=== PATIENT | female | born 1980 ===

== ENCOUNTER 2025-06-13 08:09 | Outpatient (AMB) | payer OTHER, SELFPAY ==
--- NOTE | 2025-06-13 08:11 | MHC.PC.OV ---
Vital Signs 06/13/25 08:21 Height 5 ft 6.3 in Weight 298 lb BMI 47.7 BP 130/72 Blood Pressure Location Lt brachial Position Sitting Respiration 18 Pulse 81 Pulse Source Pulse Oximeter Temp 98.6 F Temp Source Temporal Artery Scan Pulse Oximetry (%) 97 Oxygen Delivery Method Room Air Intake Visit Reasons: ANAYELI, reestablish care Cable Tv Installer Required: No Accompanied by: Self / Same As Patient Allergies azithromycin (From ZITHROMAX) Allergy (Intermediate, Verified 06/13/25 08:11) HIVES, THROAT SWELLING Penicillins (PENICILLINS) Allergy (Intermediate, Verified 06/13/25 08:11) HIVES, THROAT SWELLING Sulfa (Sulfonamide Antibiotics) (SULFA (SULFONAMIDE ANTIBIOTICS)) Allergy (Intermediate, Verified 06/13/25 08:11) HIVES, THROAT SWELLING Medication List - Last Reconciled 06/13/25 by Cheli Ho MD cyanocobalamin (vitamin B-12) 1,000 mcg subcut Q4W lisinopril 20 mg PO DAILY lorazepam 1 mg PO DAILY PRN omeprazole 20 mg PO DAILY Tobacco use date assessed: 06/13/25 Dental Screening Dental Screen Date: 06/13/25 Did you have a dental visit in the last 12 months?: Yes Did you have a dental problem in the last 6 months where you did not have access to dental care?: No Was dental information given to patient?: Patient has dentist HPI HPI Comments History of Present Illness Details The patient is a 45 year old female presenting to re-establish care and address multiple ongoing health issues, including fatigue, gastrointestinal problems, and medication management. Fatigue: The patient reports ongoing and worsening fatigue and exhaustion, to the point of falling asleep during short car rides and in the evening around 7:00 or 8:00 PM. This has been a persistent pattern, causing her distress. She underwent a repeat sleep study in April 2025 at [facility] but has not yet received the results; she has a follow-up appointment with a nurse practitioner scheduled for tomorrow. She has a diagnosis of sleep apnea. ADHD: The patient has a history of ADHD but has stopped all related medications, including Concerta. Had severe withdrawal symptoms once when she stopped medication. She reports that her performance at work has improved despite being off the medication. Gastrointestinal Issues and Gallbladder Disease: The patient continues to experience gastrointestinal issues, including burning sensations, which are managed with daily omeprazole. She was referred to Dr. Vanegas for a second opinion and has already had a consultation. A HIDA scan is scheduled for Tuesday to investigate a possible gallbladder issue. She also struggles with constipation and straining, which has led to hemorrhoids. Her water intake is good, and she has started taking a teaspoon of fiber as recommended. She reports that she cannot eat much due to these issues. She also experiences nausea regardless of what she eats, which is managed with brendan pills and Tums with brendan. Zofran has been effective for her nausea in the past. Splenic Artery Aneurysm: The patient has a history of a splenic artery aneurysm and reports recent pain in the splenic region. She has informed Dr. Vanegas about this history. She was previously followed by a vascular specialist, Dr. Fletcher, and is due for a follow-up in July. Right Leg Hematoma: The patient sustained a deep hematoma in her right leg after falling through a porch in May of last year. She continues to experience pain, irritation, residual lumps, and swelling in the affected leg. Gynecological Issues: The patient reports ongoing vaginal issues, including pain and spasms after urination. She experiences severe menstrual cramps that affect her ability to focus. Weight Management: The patient is concerned about her weight, which fluctuates between 290 and 297 pounds. She expresses interest in a weight management consultation and inquired about GLP 1s. Discussed that due to her ongoing GI issues would not be ideal. Diabetes mellitus type 2- diet controlled, has been in borderline range for years Hypertension: Her blood pressure is controlled with lisinopril 20 mg daily, typically measuring in the 120s. Vitamin B12 Deficiency: The patient has a history of requiring B12 injections. Her last injection was on March 21, and she has run out of her prescription. Anxiety and Stress: The patient reports significant stress due to a toxic work environment and unresolved family conflicts following her grandfather's . She denies suicidal ideation, citing her love for her family and her mary. She manages her anxiety with lorazepam, breathing exercises, and prayer, and is now able to recognize her triggers Social History: - Spirituality: She is active in her jain and uses prayer to manage stress. [facility] Medical History (Updated 06/14/25 @ 08:40 by Cheli Ho MD) Morbid obesity Vaginal pain Routine gynecological examination Iron deficiency anemia Hiatal hernia SHARDA (obstructive sleep apnea) Primary hypertension Depression with anxiety Diabetes mellitus ADHD Surgical History (Updated 06/13/25 @ 07:56 by Cheli Ho MD) History of tonsillectomy Status post breast reduction Previous section History of sleeve gastrectomy H/O laparoscopic adjustable gastric banding History of colonoscopy Family History (Updated 06/13/25 @ 07:55 by Cheli Ho MD) Other Breast cancer Lupus (systemic lupus erythematosus) Primary hypertension Type 2 diabetes mellitus in patient with obesity Social History Housing: House Patient Tobacco Use Status: Never used Tobacco Tobacco use type: Cigarette e-Cigarette/Vaping Use: Never Used service: No Current occupational status: employed Current occupation: [employer] PHQ-9 Over the last 2 weeks, how often have you been bothered by any of the following problems? 1. Little interest or pleasure in doing things: several days 2. Feeling down, depressed, or hopeless: several days 3. Trouble falling or staying asleep, or sleeping too much: nearly every day 4. Feeling tired or having little energy: nearly every day 5. Poor appetite or overeating: nearly every day 6. Feeling bad about yourself - or that you are a failure or have let yourself or your family down: not at all 7. Trouble concentrating on things, such as reading the newspaper or watching television: not at all 8. Moving or speaking so slowly that other people could have noticed. Or the opposite - being so fidgety or restless that you have been moving around a lot more than usual: not at all 9. Thoughts that you would be better off or of hurting yourself in some way: not at all Total score: 11 Source: Developed by Drs. Taras Mak, Carolyn العراقي, Anthony Farnsworth and colleagues, with an educational griffin from [employer]. Thrive Questionnaire Date Thrive assessed: 06/13/25 AUDIT C Alcohol Use Questionnaire (AUDIT-C) 1. How often do you have a drink containing alcohol?: Never 3. How often do you have six or more drinks on one occasion?: Never Total Score: 0 ROSEANN-7 AMB Questionnaire ROSEANN-7 Date ROSEANN - 7 assessed: 06/13/25 Source: Developed by Drs. Taras Mak, Carolyn العراقي, Anthony Farnsworth and colleagues, with an educational griffin from [employer]. Review of Systems Narrative Review of Systems - Constitutional: Reports significant, worsening fatigue and exhaustion. - Cardiovascular: Denies chest pain or shortness of breath. - Respiratory: Denies wheezing. - Gastrointestinal: Reports ongoing gastrointestinal issues, burning sensation, constipation, straining with bowel movements, nausea, and decreased appetite. Denies bloating with fiber. - Genitourinary: Reports vaginal pain and spasms, particularly after urination. - Musculoskeletal: Reports persistent pain, residual lumps, irritation, and tenderness in the right calf following a fall. - Neurological: Reports falling asleep involuntarily, even during short daytime car rides. Denies dizziness. - Psychiatric: per hpi Physical exam (Primary Care) Vital Signs: Last Vital Signs Temp 98.6 F 06/13/25 08:21 Pulse 81 06/13/25 08:21 Resp 18 06/13/25 08:21 BP 130/72 06/13/25 08:21 Pulse Ox 97 06/13/25 08:21 Oxygen Delivery Method Room Air 06/13/25 08:21 BMI result Body Mass Index 47.7 Tobacco/Smoking Status: Tobacco use Status Tobacco use date assessed 06/13/25 06/13/25 08:13 Patient Tobacco Use Status Never used Tobacco 06/13/25 08:23 Tobacco use type Cigarette 06/13/25 08:23 e-Cigarette/Vaping Use Never Used 06/13/25 08:23 PHQ-9: PHQ-9 Score PHQ-9: Total score 11 06/13/25 09:09 Thrive Assessment: Date of Thrive Assessment Date Thrive assessed 06/13/25 06/13/25 08:13 Narrative Physical Exam - Respiratory: Lungs are clear to auscultation bilaterally. No wheezing noted. - Cardiovascular: Normal rate and rhythm. A soft heart murmur is present. - Abdomen: Normal bowel sounds. Tenderness on palpation of the epigastric area. - Extremities: Tenderness noted on palpation of the right calf at site of hematoma. Coding Level of Care Code Est Pt Level 5 (26325) Add On Problem Visit Only Diagnoses Primary hypertension I10 Type 2 diabetes mellitus with other specified complication, without long-term current use of insulin E11.69 Diabetes mellitus type: type 2 Diabetes mellitus emt intermediate insulin use: without prison use Diabetes mellitus complication status: with other specified complication SHARDA (obstructive sleep apnea) G47.33 Time Spent (min) 48 Comment review of care plan, documentation, visit, physical exam, ordering tests Assessment & Plan Assessment & Plan (1) Primary hypertension: Code(s): I10 - Essential (primary) hypertension Category: Medical (2) Diabetes mellitus: Code(s): E11.9 - Type 2 diabetes mellitus without complications Category: Medical Qualifiers: Diabetes mellitus type: type 2 Diabetes mellitus emt intermediate insulin use: without emt intermediate use Diabetes mellitus complication status: with other specified complication Qualified Code(s): E11.69 - Type 2 diabetes mellitus with other specified complication (3) SHARDA (obstructive sleep apnea): Code(s): G47.33 - Obstructive sleep apnea (adult) (pediatric) Category: Medical Plan Assessment and Plan 1. Fatigue/Sleepiness - Patient reports worsening fatigue despite a history of sleep apnea. - A sleep study was done in April with results pending. - Patient will follow up with the sleep clinic nurse practitioner tomorrow and provide this office with an update and results. - This will help determine the next steps in management. 2. Gastrointestinal Issues/Nausea - Patient has ongoing GI symptoms and is scheduled for a HIDA scan to evaluate for gallbladder pathology. - She will follow up with Dr. Vanegas post-scan. - Given her history, GLP-1 agonists are contraindicated at this time due to the risk of worsening gastroparesis. - Will refill Omeprazole. - Will prescribe Zofran for nausea as it has been effective in the past. 3. Right Leg Hematoma/Pain - The patient has persistent pain, swelling, and tenderness in the right calf from a fall last year. - Plan is for the patient to use ice packs with an MARK wrap for 20-minute intervals to reduce inflammation. 4. Gynecological Issues & GENERAL ASSIGNMENT REPORTER Care - Patient reports vaginal pain, spasms - She requires ongoing care. - Will provide a referral to a new GENERAL ASSIGNMENT REPORTER - Will refill Diflucan and clotrimazole ointment. 5. Weight Management - Patient is interested in bariatric surgical options, has had previous surgeries - Will provide a referral to the bariatric surgery/weight management clinic for consultation. 6. Hypertension - Blood pressure is well-controlled on lisinopril 20mg daily. - Will continue current regimen. - Avoided diuretics due to prior adverse effects and electrolyte imbalances. - Will refill lisinopril. 7. Anxiety/Stress - Patient is under significant stress from a toxic work environment and family issues. - She is coping with lorazepam PRN, breathing, and prayer. 8. Vitamin B12 Deficiency - Patient is due for her B12 injection, with the last one being in March. - A full set of labs, including B12 and iron panel, will be drawn today 9. Menstrual Cramps/Headaches - Patient reports severe cramps. - Discussed starting magnesium complex, one pill daily, to see if it helps. - Lab work will check baseline magnesium levels. - Will also refill Butalbital for headaches. 10. Heart Murmur - A soft murmur was noted on exam. - The patient was reassured that this is not concerning without symptoms like chest pain or shortness of breath, especially given her history of a normal echocardiogram in the past 11. Diagnostics - Ordered a full set of labs today, including CMP, CBC, iron panel, B12, and magnesium. - Also ordered a urine microalbumin to check for protein. 12. Follow-up - Plan to follow up in three months for a physical. Plan - Patient to proceed with bloodwork and urinalysis today. - Referral placed to GENERAL ASSIGNMENT REPORTER for ongoing gynecological issues. - Referral placed to the bariatric surgery/weight management clinic for consultation. - Patient will see the sleep clinic nurse practitioner tomorrow and will have results sent to this office. - Patient to undergo scheduled HIDA scan and follow up with Dr. Vanegas. - Advised to use ice packs with an MARK wrap on the right calf for 20-minute intervals to manage pain and inflammation. - Advised to start magnesium complex, one pill daily, for cramps, after baseline levels are checked. - Follow up in the office in three months for a physical exam. Patient Instructions - Please go to the lab today to have your blood drawn and to provide a urine sample. - For the pain and swelling in your right leg, apply an ice pack wrapped in an Mark bandage for about 20 minutes at a time, several times a day. - We have sent referrals for you to see a new GENERAL ASSIGNMENT REPORTER and the weight management clinic. - After your appointment with the sleep specialist tomorrow, please have them send a copy of the sleep study results to our office. - Continue taking your Lisinopril for blood pressure and Omeprazole for stomach issues as prescribed. Orders: Orders Ferritin 06/13/25 D50.9 - Iron deficiency anemia, unspecified, E11.9 - Type 2 diabetes mellitus without complications, G47.33 - Obstructive sleep apnea (adult) (pediatric), I10 - Essential (primary) hypertension IRON PROFILE 06/13/25 D50.9 - Iron deficiency anemia, unspecified, E11.9 - Type 2 diabetes mellitus without complications, G47.33 - Obstructive sleep apnea (adult) (pediatric), I10 - Essential (primary) hypertension Complete Blood Count Auto Diff 06/13/25 D50.9 - Iron deficiency anemia, unspecified, E11.9 - Type 2 diabetes mellitus without complications, G47.33 - Obstructive sleep apnea (adult) (pediatric), I10 - Essential (primary) hypertension Hemoglobin A1c 06/13/25 D50.9 - Iron deficiency anemia, unspecified, E11.9 - Type 2 diabetes mellitus without complications, G47.33 - Obstructive sleep apnea (adult) (pediatric), I10 - Essential (primary) hypertension Vitamin B12 06/13/25 D50.9 - Iron deficiency anemia, unspecified, E11.9 - Type 2 diabetes mellitus without complications, G47.33 - Obstructive sleep apnea (adult) (pediatric), I10 - Essential (primary) hypertension Vitamin D 25-OH Total 06/13/25 D50.9 - Iron deficiency anemia, unspecified, E11.9 - Type 2 diabetes mellitus without complications, G47.33 - Obstructive sleep apnea (adult) (pediatric), I10 - Essential (primary) hypertension Folate 06/13/25 D50.9 - Iron deficiency anemia, unspecified, E11.9 - Type 2 diabetes mellitus without complications, G47.33 - Obstructive sleep apnea (adult) (pediatric), I10 - Essential (primary) hypertension Magnesium 06/13/25 D50.9 - Iron deficiency anemia, unspecified, E11.9 - Type 2 diabetes mellitus without complications, G47.33 - Obstructive sleep apnea (adult) (pediatric), I10 - Essential (primary) hypertension Comprehensive Met. Panel 06/13/25 D50.9 - Iron deficiency anemia, unspecified, E11.9 - Type 2 diabetes mellitus without complications, G47.33 - Obstructive sleep apnea (adult) (pediatric), I10 - Essential (primary) hypertension TSH reflex Free T4 06/13/25 D50.9 - Iron deficiency anemia, unspecified, E11.9 - Type 2 diabetes mellitus without complications, G47.33 - Obstructive sleep apnea (adult) (pediatric), I10 - Essential (primary) hypertension Lipid Panel 06/13/25 D50.9 - Iron deficiency anemia, unspecified, E11.9 - Type 2 diabetes mellitus without complications, G47.33 - Obstructive sleep apnea (adult) (pediatric), I10 - Essential (primary) hypertension Microalbumin, Random (w Creat) 06/13/25 D50.9 - Iron deficiency anemia, unspecified, E11.9 - Type 2 diabetes mellitus without complications, G47.33 - Obstructive sleep apnea (adult) (pediatric), I10 - Essential (primary) hypertension Referrals GENERAL ASSIGNMENT REPORTER Referral R10.20 - Pelvic and perineal pain unspecified side, Z01.419 - Encounter for gynecological examination (general) (routine) without abnormal findings Bariatric Surgery Referral E66.01 - Morbid (severe) obesity due to excess calories Medications: New ondansetron HCl 4 mg PO TID PRN 30 tabs 5RF nausea and vomiting tlpiahjoag-xamrssenmfstm-xrfp 50-325-40 mg 1 cap PO Q6H PRN 20 caps 3RF headache omeprazole 20 mg PO DAILY 90 caps 3RF cyanocobalamin (vitamin B-12) 1,000 mcg subcut Q4W 3 mL 3RF lorazepam 1 mg PO DAILY PRN 30 tabs 5RF anxiety fluconazole 150 mg PO Q3D 2 tabs 3RF 2 doses clotrimazole-betamethasone 1-0.05 % 1 appl topical BID 45 grams 3RF rash 2 weeks
[2025-06-13 08:21] VITALS: BP 130/72; PULSE 81; RESP 18; TEMP 37; O2SAT 97; BMI 47.7
== END 2025-06-13 09:29 | disposition home or self-care (01) ==
LOC: HO.HMCHD 08:09
PROVIDERS: PCP Internal Medicine; Visit Provider Internal Medicine
DX: I10 Essential (primary) hypertension (principal); E11.69 Type 2 diabetes mellitus with other specified complication; G47.33 Obstructive sleep apnea (adult) (pediatric)

== ENCOUNTER 2025-06-21 09:28 | Outpatient (REF) | payer OTHER, SELFPAY ==
--- OUTSIDE RECORDS SUMMARY | 2025-06-21 10:11 | XMS_ITS | Patient Health Record ---
Author Organization [facility] Address [address] [place] [address] Care Team Providers Care Network Cable Installer Name Role Phone Rosendo JIMENEZ, [facility] Primary Care Provider Unavail able Clem Gar Unavailable [phone] Allergies Allergen (clinical drug ingredient) Drug/Non Drug Allergy documented on EMR Reaction Allergy Type Onset Date Status azithromycin Zithromax hives, lip swells Drug Allergy Active sulfa hives, lip swells Drug Allergy Active Penicillin hives, lip swells Drug Allergy Active Reason For Referral No Information Medications Medication SIG (Take, Route, Frequency, Duration) Notes Start Date End Date Status Extra-Depth Diabetic Shoes with 3 Pair Custom heat-molded multi-density innersoles shoes dx:250.00,728.71,701 wear daily; Duration: 1 year 06/09/2011 Active Lisinopril 10 mg Act davy metFORMIN HCl 850 mg Active Problems Problem Type SNOMED Code ICD Code Onset Dates Problem Status W/U Status Risk Notes Problem Type II diabetes mellitus without complication (152927089) Diabetic - NIDDM (250.00) Active confirmed Plan Of Treatment No Information Insurance Providers Payer Name Payer Address Payer Phone Subscriber Number Group Number Insured Name Patient Relationship to Insured Coverage Start Date Coverage End Date [facility] [address] [place] [address] [id number] Cristopher Leal Self - patient is the insured Medical (General) History Medical History History ICD Code back, hip, knee pain type II diabetes hypertension Surgical History Surgery Date(Month/Year) section 01/08, 05/12 breast surgery 2006 tonsillectomy
--- OUTSIDE RECORDS SUMMARY | 2025-06-21 10:11 | XMS_ITS | Clinical Summary ---
Author Organization [facility] Address [address] [place] [address] Care Team Providers Care Fire Investigator Name Role Phone Cheli Ho MD Primary Care Provider [phone] Allergies Active Allergy Reactions Criticality Noted Date Comments Azithromycin Hives 01/21/2022 Tongue swelling Penicillins Hives 01/21/2022 Tongue swelling Prednisone Palpitations 01/21/2022 Sulfa (Sulfonamide Antibiotics) Hives 01/02 Tongue swelling Medications hydroCHLOROthia zide 12.5 mg tablet Take 12.5 mg by mouth daily. Active lisinopriL (PRINIVIL,ZESTR IL) 20 mg tablet Take 20 mg by mouth daily. Active LORazepam (ATIVAN) 1 mg tablet Take 1 mg by mouth every 6 hours as needed. Active omeprazole (PriLOSEC) [address] capsule TAKE 1 CAPSULE BY MOUTH EVERY DAY 06/25/2022 Active ondansetron (ZOFRAN) 4 mg tablet Take 1 Tablet by mouth every 8 hours as needed for Nausea for up to 10 doses. 05/20/2022 Active semaglutide (Ozempic) 0.25 mg or 0.5 mg(2 mg/1.5 mL) injection pen Inject 0.25 mg into the skin once a week. 09/06/2022 Active wheat dextrin (Benefiber Clear SF, dextrin,) 3 gram/3.5 gram powder in packet 06/01/2022 Active atomoxetine (STRATTERA) 40 mg capsule Take 1 capsule (40 mg total) by mouth 2 (two) times a day. Active polyethylene glycol (PEG) 17 gram/dose oral powder Take 17 g by mouth 1 (one) time each day. Active acetaminophen (TYLENOL) 500 mg tablet Take 2 tablets (1,000 mg total) by mouth every 6 (six) hours if needed. 05/17/2022 Active butalbital-aspi rin-caffeine (FIORINAL) 50-325-40 mg per capsule Take 1 capsule by mouth every 8 (eight) hours if needed. Active calcium carbonate (OS-NÉSTOR) 1250 mg (500 mg elemental calcium) chewable tablet Chew 1 tablet (1,250 mg total). Active Encounters Date Type Department Care Team Description 05/02/2025 Telephone Gastroenterology - [address] [facility] [address] [place] [address] Jairo Yuan MD from Last 3 Months Immunizations Immunization Administration Dates Next Due Td Tetanus diptheria (Tdvax) 7yo and older 06/14 Surgical History Surgery Date Site/Laterality Comments OTHER SURGICAL HISTORY PROCEDURE: ---- OTHER ----; COMMENT: gastric sleeve BREAST REDUCTION Bilateral TONSILLECTOMY ADENOIDECTOMY, BILATERAL MYRINGOTOMY AND TUBES SECTION, LOW TRANSVERSE Medical History Medical History Date Comments GERD (gastroesophageal reflux disease) DX:GERD (gastroesophageal reflux disease) Anxiety disorder DX:Anxiety diso rder Hypertension DX:Hypertension Obesity DX:Obesity Family History Medical History Relation Name Comments Diabetes Father Hypertension Mother Obesity Mother Other: Lupus Mother Relation Name Status Comments Father Mother Social History Tobacco Use Types Packs/Day Years Used Date Smoking Tobacco: Never Smokeless Tobacco: Never Alcohol Use Standard Drinks/Week Comments Never 0 (1 standard drink = 0.6 oz pur e alcohol) Interpersonal Safety Answer Date Record ed Physical Abuse Unrecognized value 06/19/2024 Verbal Abuse Unrecognized value 06/19/2024 Comments No Sex and Gender Information Value Date Recorded Sex Assigned at Female 06/18/2024 2:01 PM EST Legal Sex Female 1:59 PM EST Gender Identity Female 06/18/2024 2:01 PM EST Sexual Orientation Straight 06/18/2024 2: 01 PM EST Last Filed Vital Signs Vital Sign Reading Time Taken Comments Blood Pressure 129/82 12/11/2024 10:57 AM EDT Pulse 74 12/11/2024 10:57 AM EDT Temperature 36.6 C (97.8 F) 12/11/2024 10:57 AM EDT Respiratory Rate 16 06/19/2024 9:57 AM EST Oxygen Saturation 100% 06/19/2024 9:57 AM EST Inhaled Oxygen Concentration - - Weight 135 kg (297 lb) 12/11/2024 10:57 AM EDT Height 167.6 cm (5' 6 ) 12/11/2024 10:57 AM EDT Body Mass Index 47.94 12/11/2024 10:57 AM EDT Plan of Treatment Health Maintenance Due Date Last Done Comments Breast Cancer Screening 1981 Drug Screen 1981 Non-Opioid Controlled Substance Agreement 1981 Diabetes: Annual Foot Exam 1991 Diabetes: Annual Retina Eye Exam 1991 Hepatitis B Vaccines (1 of 3 - 19+ 3-dose series) 2000 Cervical Cancer Screening: Pap Smear 2002 Diabetes: Annual GFR (Glomerular Filtration Rate) 05/01/2005 05/01/2004 HPV Vaccines (1 - 3-dose SCDM series) 2008 Cholesterol Screening (Lipid Panel) 06/13/2022 05/01/2004 Hepatitis C Screening 06/13/2022 Social Influencers of Health Screening 06/13/2022 Diabetes: Annual Urine Albumin-Creatinine Ratio (uACR) 06/19/2024 Diabetes: Blood Sugar Control Test (HGBA1C) 06/19/2024 Hypertension/CHF/CAD Annual BMP Blood Test 06/19/2024 05/01/2004 Depression Screening 07/04/2024 COVID-19 Vaccine ( season) 2025 10/03/2020, 09/12/2020 Influenza Vaccine (#1) 2025 8, 07/14/2017, 08/11/2016, Additional history exists DTaP,Tdap,and Td Vaccines (5 - Td or Tdap) 05/07/2034 05/07/2024, 06/06/2013, 07/30/2009, Additional history exists RSV Immunization Adult Patients (1 - 1-dose 75+ series) 2056 HIV Screening Completed 12/16/2003 HIB Vaccines Aged Out No longer eligi ble based on patient's age to complete this topic Hepatitis A Vaccines Aged Out No long er eligible based on patient's age to complete this topic IPV Vaccines Aged Out No longer eligi ble based on patient's age to complete this topic MMR Vaccines Aged Out No longer eligi ble based on patient's age to complete this topic Meningococcal ACWY Vaccine Aged Out N o longer eligible based on patient's age to complete this topic Meningococcal B Vaccine Aged Out No l onger eligible based on patient's age to complete this topic Pneumococcal Vaccine: Pediatrics (0 to 5 Years) and At-Risk Patients (6 to 49 Years) Aged Out No longer eligible based on patient's age to complete this topic RSV Immunization Patients Under 20 months Aged Out No longer eligible based on patient's age to complete this topic Varicella Vaccines Aged Out No longer eligible based on patient's age to complete this topic Procedures Procedure Name Priority Date/Time Associated Diagnosis Comments ANNUAL BMP BLOOD TEST Routine 05/01/2004 LIPID PANEL Routine 05/01/2004 HIV SCREENING Routine 12/16/2003 from Last 3 Months or Most Recently Relevant to Health Maintenance Results * Annual BMP Blood Test (05/01/2004) [facility] BMP Blood Test Abstracted [facility] Provider HEALTH MAINTENANCE Final Result * Lipid panel (05/01/2004) [facility] LDL/HDL Ratio 3 <=5 Triglycerides 38 <=150 mg/dL Cholesterol 138 <=200 mg/dL HDL 46 >=40 mg/dL LDL Cholesterol 85 <=100 mg/dL Blood Venous blood specimen / Unknown Historical Provider LAB BLOOD ORDERABLES Lis l Result * HIV Screening (12/16/2003) [facility] HIV Screening Abstracted Historical Provider HEALTH MAINTENANCE Final Result from Last 3 Months or Most Recently Relevant to Health Maintenance Insurance [facility] [address] [place] [id number] Care Teams Fire Investigator Relationship Specialty Start Date End Date Cheli Ho MD [address] [place] [address] PCP - General 01/17/14
--- OUTSIDE RECORDS SUMMARY | 2025-06-21 10:11 | XMS_ITS ---
Author Name [facility] Organization Unknown Encounters Encounter Type Encounter Reason Primary Diagnosis Location Date Ambulatory [facility] 08/05 Care Team Organization Name Specialty Phone Email Start Date End Da te [facility] Tim Ojeda Primary Care 08/29/2021
--- OUTSIDE RECORDS SUMMARY | 2025-06-21 10:11 | XMS_ITS | Clinical Summary ---
Author Organization [facility] Address [address] [place] [address] Care Team Providers Care French Folding Machine Operator Name Role Phone Rusty Dumont MD Primary Care Provider Un available Rusty Dumont MD Unavailable Unavaila ble Allergies Active Allergy Reactions Criticality Noted Date Comments Azithromycin 02/20/2010 Penicillins 02/20/2010 Sulfa Antibiotics 02/20/2010 Medications metFORMIN HCl 625 MG Tab 0 02/20/2010 Active Probiotic Product (Probiotic Blend) Cap 0 02/20/2010 Active Ascorbic Acid (Vitamin C) 500 MG tablet 0 02/20/2010 Active Levonorgestrel (Mirena, 52 MG,) 20 MCG/DAY IUD 0 02/20/2010 Active Lisinopril (PRINIVIL,ZESTR IL) 10 MG tablet Take 1 tablet daily tablet 0 03/19/2010 Active TRIAMCINOLONE ACETONIDE, TOP, 0.1 % Cream APPLY AND RUB IN A THIN FILM TO AFFECTED AREAS TWICE DAILY.(AM AND PM). 0 03/19/2010 Active metFORMIN HCl (GLUCOPHAGE) 850 MG tablet 1QD - TAKE ONE TABLET BY MOUTH EVERY DAY 30 1 06/22/2010 Active Active Problems Problem Noted Date Diagnosed Date Chest tightness or pressure 03/19/2010 Eczema 03/19/2010 Hypertension 02/27/2010 Type 2 diabetes mellitus 02/20/2010 Immunizations Immunization Administration Dates Next Due Tdap 07/30/2009 Social History Tobacco Use Types Packs/Day Years Used Date Smoking Tobacco: Never Assessed Comments Unknown Sex and Gender Information Value Date Recorded Sex Assigned at Not on file Legal Sex Female 5:48 PM EDT Gender Identity Not on file Sexual Orientation Not on file Last Filed Vital Signs Vital Sign Reading Time Taken Comments Blood Pressure 114/62 03/19/2010 11:28 AM EDT Pulse 68 03/19/2010 11:28 AM EDT Temperature 36.6 C (97.8 F) 03/19/2010 11:28 AM EDT Respiratory Rate 12 03/19/2010 11:28 AM EDT Oxygen Saturation - - Inhaled Oxygen Concentration - - Weight 151 kg (333 lb 0.1 oz) 03/19/2010 11:28 A M EDT Height - - Body Mass Index - - Plan of Treatment Health Maintenance Due Date Last Done Comments Hepatitis C Screening 1981 Pap Smear 1997 Eye/Retina Exam 1999 Hep B (1 of 3 - 19+ 3-dose series) 2000 GFR 08/07/2010 08/07/2009 LDL Cholesterol 08/07/2010 08/07/2009 Microalbumin 08/14/2010 08/14/2009 DTaP/Tdap/Td (2 - Td or Tdap) 07/30/2019 07/30/2009 Mammogram/Breast Imaging 2021 COVID-19 Vaccine ( - 2024-2 6 season) 2025 Influenza (#1) 2025 Zoster (Shingrix) (1 of 2) 2031 HPV Vaccine (No Doses Required) Completed Hep A Aged Out No longer eligi ble based on patient's age to complete this topic Hib Aged Out No longer eligi ble based on patient's age to complete this topic Meningococcal ACWY Aged Out No longer eligible based on patient's age to complete this topic Pneumococcal Aged Out No longer eligi ble based on patient's age to complete this topic Procedures Procedure Name Priority Date/Time Associated Diagnosis Comments MICROALBUMIN / CREATININE URINE RATIO Routine 08/14/2009 11:00 AM EST COMPREHENSIVE METABOLIC PANEL Routine 08/07/2009 8:00 AM EST LIPID PANEL, PLASMA Routine 08/07/2009 8 :00 AM EST from Last 3 Months or Most Recently Relevant to Health Maintenance Results * MICROALBUMIN / CREATININE URINE RATIO (08/14/2009 11:00 AM EST) Albumin (Urine) 9 0 - 23 mg/L [facility] Creatinine (Urine) 113 60 - 200 mg/dL [facility] Microalbumin/Cr eat Ratio (Urine) 8 0 - 30 [facility] 08/14/2009 11:0 0 AM EST Narrative [facility] CONVERSION[facility] - 08/15/2009 11:41 AM EST Testing Performed at: [facility], [address] [place] [address], , Junior Linux Systems Administrator: Messi Delgado MD [facility] Final Result Performing Organization Address [facility] Co de Phone Number [facility] CONVERSIONS * (ABNORMAL) LIPID PANEL, PLASMA (08/07/2009 8:00 AM EST) Cholesterol 116 0 - 199 mg/dL [facility] Triglyceride 42 0 - 150 mg/dL [facility] VLDL Cholesterol 8 5 - 40 mg/dL [facility] HDL Cholesterol 38(L) 50 - 80 mg/dL [facility] LDL Cholesterol 70 0 - 100 mg/dL [facility] CHOL/HDL Ratio 3.1 [facility] Comment: Lipid Profile Comment: LDL Cholesterol Goals <130 mg/dl optimal for patients with less than 2 risk factors <100 mg/dl optimal for patients with 2 or more risk factors <70 mg/dl optimal for patients at high risk for heart disease 08/07/2009 8:00 AM EST Narrative [facility] CONVERSION[facility] - 08/07/2009 8:47 PM EST No urine rcvd Pt. unable to void Specimen exhibits Hemolysis. Potassium, LDH, Mg, AST, TP, CK and Inorganic Phosphorus may be falsely elevated. Glucose may be falsely decreased. Please use caution when interpreting results. Testing Performed at: [facility], [address] [place] [id number], , Junior Linux Systems Administrator: Messi Delgado MD Hamida Phillips [facility] Final Result Performing Organization Address [facility] Co de Phone Number [facility] CONVERSIONS * COMPREHENSIVE METABOLIC PANEL (08/07/2009 8:00 AM EST) Glucose 89 65 - 99 mg/dL [facility] Comment:Fasting Reference In terval Urea Nitrogen Blood (BUN) 10 6 - 20 mg/dL [facility] Creatinine 0.9 0.4 - 1.1 mg/dL [facility] GFR 79 60 - 1000 [facility] Comment: Units of measure for estimated Glomular Filtration Rate: mL/min/1.73m2. If patient is , multiply reported result by 1.21 eGFR calculation is only valid for adults 18-85 years of age. Sodium 141 133 - 145 mmol/L [facility] Potassium 4.2 3.3 - 5.1 mmol/L [facility] Chloride 105 96 - 108 mmol/L [facility] Bicarbonate 23 22 - 32 mmol/L [facility] Anion gap 3 13 [facility] Calcium 8.6 8.4 - 10.2 mg/dL [facility] Protein Total (Serum) 6.5 6.4 - 8.3 g/dL [facility] Albumin 4.2 3.5 - 5.2 g/dl [facility] Alkaline phosphatase 74 35 - 105 U/L [facility] AST (SGOT) 22 4 - 32 U/L [facility] ALT (SGPT) 18 4 - 33 U/L [facility] Bilirubin Total 0.5 0.1 - 1.0 mg/dL [facility] Globulin 2.3 1.4 - 4.8 g/dl [facility] Albumin/Globulin 2 1 - 3 [facility] T CONVERSIONS Osmolality 271 253 - 285 mOsm/kg [facility] BUN/Creatinine Ratio 11 6 - 25 [facility] CONVERSION[facility] 08/07/2009 8:00 AM EST Narrative [facility] CONVERSIONS - 08/07/2009 8:42 PM EST No urine rcvd Pt. unable to void Specimen exhibits Hemolysis. Potassium, LDH, Mg, AST, TP, CK and Inorganic Phosphorus may be falsely elevated. Glucose may be falsely decreased. Please use caution when interpreting results. Testing Performed at: [facility], [address] [place] [id number], , Junior Linux Systems Administrator: Messi Delgado MD us Hamida Phillips APRN LABORATORY Final Result [facility] CONVERSIONS from Last 3 Months or Most Recently Relevant to Health Maintenance Care Teams French Folding Machine Operator Relationship Specialty Start Date End Date Rusty Dumont MD PCP - General 02/07/23 Rusty Dumont MD PCP - Backup PCP Family Medicine 08/04/23
[2025-06-21 15:12] LABS: MANUAL DIFF FLAG NO
[2025-06-21 15:30] LABS: Hematocrit 30.4 % (37.0-47.0); Hemoglobin 9.5 g/dl (12.0-16.0); Imm Gran Abs Auto 0.02 X10*3/uL (0.00-0.03); Imm Gran Pct Auto 0.4 % (0.0-0.4); Lymphocytes Absolute Auto 1.5 X10*3/uL (1.2-4.9); Mean Corpuscular HGB Conc 31.3 g/dl (31.0-35.0); Mean Corpuscular Hemoglobin 25.1 pg (27.0-33.0); Mean Corpuscular Volume 80.4 fL (80.0-98.0); NRBC Abs Auto 0.000 X10*3/uL (0.0-0.012); NRBC Pct Auto 0.0 /100WBC (0.0-0.2); Platelet Count 364 X10*3/uL (160-400); Red Blood Count 3.78 X10*6/uL (4.20-5.50); White Blood Count 5.5 X10*3/uL (4.8-10.8)
[2025-06-21 16:23] LABS: Folate 8.0 ng/mL (> or = 4.0); Vitamin B12 541 pg/mL (200-900)
[2025-06-21 16:30] LABS: Microalbum/Creatinine Ratio Ur 5.4 ug/mg cr (<30)
[2025-06-21 16:45] LABS: Alanine Aminotransferase 12 U/L (0-31); Albumin Level 4.2 g/dL (3.5-5.0); Alkaline Phosphatase 81 U/L (39-117); Anion Gap 12 (12-20); Aspartate Amino Transferase 30 U/L (5-31); Blood Urea Nitrogen 10 mg/dL (9-16); Calcium 9.0 mg/dL (8.4-10.2); Carbon Dioxide 25 mmol/L (22-29); Chloride 108 mmol/L (96-108); Cholesterol 135 mg/dL (<200); Estimated Glomerular Filt Rate > 60; Ferritin 12 ng/mL (10-250); HDL Cholesterol 47 mg/dL (>40); Iron 35 mcg/dL (30-160); Magnesium 1.9 mg/dL (1.6-2.6); Percent Iron Saturation 10 % (15-50); Potassium 3.6 mmol/L (3.3-5.1); Sodium 141 mmol/L (135-145); Total Iron Binding Capacity 340 mcg/dL (228-428); Total Protein 7.0 g/dL (6.5-8.0); Triglycerides 45 mg/dL (<150); Unsaturated Iron Binding 305 ug/dL
== END 2025-06-21 09:29 | disposition home or self-care (01) ==
LOC: HO.HKASLDS 09:28
PROVIDERS: PCP Internal Medicine; Visit Provider Internal Medicine
DX: I10 Essential (primary) hypertension (principal); E11.9 Type 2 diabetes mellitus without complications; G47.33 Obstructive sleep apnea (adult) (pediatric); D50.9 Iron deficiency anemia, unspecified; Z13.21 Encounter for screening for nutritional disorder
CPT/HCPCS: 36415; 80053; 80061; 82043; 82306; 82570; 82607; 82728; 82746; 83036; 83540; 83735; 84443; 85025